=== PATIENT | female | born 1970 | race Caucasian/White ===

== ENCOUNTER 2024-03-08 20:37 | Emergency (ER) | payer OTHER, SELFPAY ==
[2024-03-08 20:38] VITALS: BP 172/100
--- NOTE | 2024-03-08 21:42 | ED.GENMED ---
History of Present Illness
General
Chief Complaint: Musculo-Skeletal Complaint
Time Seen by Provider: 03/08/24 20:58
History of Present Illness
History of Present Illness:
Patient is a 53-year-old woman with history of diabetes, hypertension, hyperlipidemia presenting to the emergency department ankle pain. Patient states that she was walking when she stepped into a hole and twisted both her ankles. She landed on
her bottom. She not hit her head or lose consciousness. She is not on any blood thinners. She does state that she is broken both fibula before twice. She does state that she was unable to bear weight afterwards. She does have significant
swelling to the bilateral ankles. No numbness tingling. No pain elsewhere.
Past History
Past History
ED Past Medical History: HTN and Hypercholesterolemia
Social History
Personal:
Living: with family
Employment: Employed
Phy Exam
Physical Exam
Physical Exam:
GENERAL: in no acute distress
HEENT: normocephalic, extraocular movements intact, moist oral mucosa
NECK: normal inspection
RESPIRATORY: no respiratory distress, clear to auscultation bilaterally
CARDIOVASCULAR: regular rate and rhythm
ABDOMEN/: soft, non-distended, non-tender to palpation, no rebound or guarding
EXTREMITIES: Bilateral lower extremity with significant tenderness over bilateral lateral malleolus. No skin tenting or skin compromise. Neurovascularly intact. 2+ DP pulses bilaterally. Left knee with small abrasion
NEUROLOGIC: awake and alert, moves all extremities
SKIN: warm
Course
Orders/Labs/Results
Orders:
Orders
03/08/24 20:43
Ankle, Right 3 view CR [CR Ankle - Right Min 3 Views *] Urgent
Comment:
Reason For Exam: bilateral ankle injury, pain and swelling
CR Ankle - Left Min 3 Views Urgent
Comment:
Reason For Exam: bilat ankle injury, pain and swelling
03/08/24 22:06
Acetaminophen [Tylenol] 650 mg PO NOW STA
CR Ankle - Left 2 Views Urgent
Reason For Exam: pain
CR Ankle - Right 2 Views Urgent
Reason For Exam: pain
03/08/24 22:29
CR Knee - Left 4 Or More View* Urgent
Comment:
Reason For Exam: pain
CR Knee- Right 4 Or More View* Urgent
Comment:
Reason For Exam: pain
03/09/24 00:11
Oxycodone [Roxicodone Oral Solution] 5 mg PO NOW STA
Vital Signs
Initial and Last Documented VS:
Initial Vital Signs
Temp Pulse Resp BP Pulse Ox
98 F 108 18 172/100 96
03/08/24 20:38 03/08/24 20:38 03/08/24 20:38 03/08/24 20:38 03/08/24 20:38
Last Documented Vital Signs
Temp Pulse Resp BP Pulse Ox
98 F 78 16 174/78 100
03/08/24 20:38 03/09/24 00:00 03/09/24 00:00 03/09/24 00:00 03/09/24 00:00
MDM/Problems Addressed
Differential Diagnosis Includes:
Patient is a 53-year-old woman with history of hypertension, hyperlipidemia, diabetes presenting to the emergency department bilateral ankle after a fall. Vitals are notable for hypertension exam does show bilateral lateral malleolus tenderness
with swelling. Neurovascularly she is intact. Concern for fracture versus dislocation. X-ray obtained prior to my evaluation. Per my interpretation she does have distal fibular fractures bilaterally. Will discuss with orthopedic.
*Critical Care Note
Total Time (30-74mins, 75-104mins- exclusive of procedures): Not Applicable
Update Note
Update Note:
Discussed with orthopedic surgery who recommended weightbearing x-rays as well as x-rays of the knees. X-rays of the knees unremarkable per my interpretation. Weightbearing x-rays discussed with orthopedic. Recommend surgery on the left but can
be done outpatient. Patient is adamant on going home. She will be weightbearing as tolerated on the right. The left will be nonweightbearing. She was able to have both cam boot and was able to ambulate with a walker. I did offer patient
admission however patient would prefer to go home. She will follow-up with orthopedics. Will give short course of opioid for pain management as well.
ED Attending Note
-
Portions of this chart may have been created with voice recognition software.� Occasional wrong word or��sound alike� substitutions may have occurred due to the inherent limitations of voice recognition software.
Discharge Plan
Departure
Patient Disposition: Home (Routine Discharge)
Date of Disposition: 03/09/24
Time of Disposition: 00:11
Patient with high blood pressure during this ER visit?: Yes
Discharge Problem:
Bilateral fibular fractures
Instructions: Ankle Fracture (DC)
Prescriptions:
New
oxycodone 5 mg capsule
5 mg PO Q8H PRN (Reason: Pain) Qty: 8 0RF
No Action
metformin 500 mg Tablet
2,000 mg PO DAILY
losartan-hydrochlorothiazide 100-25 mg Tablet
1 tab PO DAILY
rosuvastatin 40 mg Tablet
40 mg PO DAILY
Jardiance 10 mg Tablet
10 mg PO DAILY
Referrals:
Kenn Jacobo MD [Emergency Provider] -
Troy Moralez MD [Active] -
UNKNOWN - PT DOES,NOT KNOW [Family Provider] -
Activity Restrictions/Additional Instructions:
You were seen in the Emergency Department today for bilateral ankle fractures at the fibula. Please weight-bear as tolerated on the right leg. You are nonweightbearing on the left. Please call the orthopedic surgeon for follow-up. You will need
surgery.
We would like for you to follow up with your primary care physician for further evaluation. If you experience fever, worsening of your symptoms, or develop any other new or concerning symptoms, please return to the Emergency Department immediately.
Please see the attached sheet for additional information.
Interventions
Interventions:
*Risk Screen - Suicide Last Done: 03/08/24 20:38
*General Assessment Last Done: 03/08/24 20:38
*Neglect/Abuse Screening Last Done: 03/08/24 20:38
*ED COVID-19 Vaccine History Last Done: 03/08/24 22:07
ED-Musculoskeletal Assessment Last Done: 03/08/24 22:07
Discharge Date and Time
Print Language: SERBIAN
[2024-03-08] MEDS: TYLENOL 650 MG PO (22:12)
[2024-03-09] VITALS: BP 174/78
[2024-03-09] MEDS: ROXICODONE 5 MG PO (00:24)
== END 2024-03-09 00:31 | disposition home or self-care (01) ==
LOC: EMR 20:37
PROVIDERS: EMERGENCY PHYSICIAN Student in an Organized Health Care Education/Training Program
DX: S82.832A Other fracture of upper and lower end of left fibula, initial encounter for closed fracture (principal); S82.831A Other fracture of upper and lower end of right fibula, initial encounter for closed fracture; M79.89 Other specified soft tissue disorders; W17.89XA Other fall from one level to another, initial encounter; Y93.01 Activity, walking, marching and hiking; E11.9 Type 2 diabetes mellitus without complications; E78.00 Pure hypercholesterolemia, unspecified; I10 Essential (primary) hypertension; Z79.84 Long term (current) use of oral hypoglycemic drugs; Z88.6 Allergy status to analgesic agent
CPT/HCPCS: 99283; 29515 ×2; 73564; 73600; 73610

== ENCOUNTER → 2024-04-25 10:03 | Outpatient (REF) | payer OTHER, SELFPAY | LOC: WDC 10:03 | PROVIDERS: ATTENDING PHYSICIAN Nurse Practitioner Adult Health; FAMILY PHYSICIAN Family Medicine | DX: N61.0 Mastitis without abscess (principal) | CPT/HCPCS: 76642; 77062; 77066 ==

== ENCOUNTER → 2025-05-02 15:02 | Outpatient (REF) | payer OTHER, SELFPAY | LOC: WDC 15:02 | PROVIDERS: ATTENDING PHYSICIAN Nurse Practitioner Adult Health; FAMILY PHYSICIAN Family Medicine | DX: Z12.31 Encounter for screening mammogram for malignant neoplasm of breast (principal) | CPT/HCPCS: 77063; 77067 ==